=== PATIENT | female | born 2000 | race Two or more races ===

== ENCOUNTER 2020-06-04 05:23 | Emergency (ER) | payer SELFPAY ==
[~2020-06-04] VITALS: Ht 165.1 cm; Wt 75.0 kg
[2020-06-04] MEDS ORDERED: ONDANSETRON ODT 4 MG ONE (05:30)
[2020-06-04] MEDS ORDERED: ONDANSETRON ODT 4 MG PO ONE (05:30)
--- NOTE | 2020-06-04 05:41 | NUR ---
THIS IS A 19Y F BIB EMS FROM [facility] FOUND OUTSIDE LAYING IN PUDDLE OF OWN VOMIT SLEEPING. PT AROUSABLE TO VOICE BUT DOES NOT FOLLOW COMMANDS AT THIS TIME. PT IS APOLOGETIC BUT DOES NOT ANSWER TRIAGE QUESTIONS. MONTSE COLES. PT DID VOMIT FOR EMS, BUT NOT HERE. ATTEMPTED TO MEDICATE PT BUT DOES NOT FOLLOW COMMANDS/ RESPOND WHEN ASKED IF SHE WANTS MEDICATION FOR NAUSEA
[2020-06-04] MEDS ORDERED: PLEASE ENTER ALLERGIES MC SCH (06:00)
[2020-06-04 06:34] VITALS: BP 100/52
--- NOTE | 2020-06-04 07:03 | NUR ---
REC BS REPORT PT RESTING FULL MONITORING IN PLACE
== END 2020-06-04 11:00 | disposition home or self-care (01) ==
LOC: ED 10:28
DX: F10.120 Alcohol abuse with intoxication, uncomplicated (principal); R11.2 Nausea with vomiting, unspecified; Y90.9 Presence of alcohol in blood, level not specified
CPT/HCPCS: 99283